=== PATIENT | female | born 1990 | race Caucasian/White ===

== ENCOUNTER 2016-12-24 20:49 | Outpatient (CLI) | payer MEDICAID, OTHER ==
[~2016-12-24] VITALS: Ht 167.6 cm; Wt 70.0 kg
[2016-12-24] MEDS ORDERED: MEPERIDINE/PF 100 MG/ML ONE (22:58)
[2016-12-24] MEDS ORDERED: PROMETHAZINE 25 MG/ML, 1ML ONE (22:58)
[2016-12-24] MEDS ORDERED: PROMETHAZINE 25 MG/ML, 1ML IM ONE (23:00)
[2016-12-24] MEDS ORDERED: MEPERIDINE/PF 50 MG/ML IM PRN (23:00)
== END 2016-12-24 23:12 | disposition home or self-care (01) ==
LOC: LDOP 20:49
PROVIDERS: ATTEND Obstetrics & Gynecology
DX: O26.893 Other specified pregnancy related conditions, third trimester (principal); O99.343 Other mental disorders complicating pregnancy, third trimester; O99.333 Smoking (tobacco) complicating pregnancy, third trimester; O62.9 Abnormality of forces of labor, unspecified; F32.9 Major depressive disorder, single episode, unspecified; F17.200 Nicotine dependence, unspecified, uncomplicated; R10.9 Unspecified abdominal pain; Z3A.38 38 weeks gestation of pregnancy
CPT/HCPCS: 59025; 81001; 87086; 99211; J2175; J2550; G0463

== ENCOUNTER 2016-12-25 13:59 | Inpatient (IN) | payer MEDICAID ==
[~2016-12-25] VITALS: Ht 167.6 cm; Wt 69.5 kg
[2016-12-25] MEDS ORDERED: FENTANYL PF 100 MCG/2ML IVPush PRN (14:00)
[2016-12-25] MEDS ORDERED: LACTATED RINGERS 1,000 ML IV SCH (14:00)
[2016-12-25] MEDS ORDERED: FENTANYL PF 100 MCG/2ML IV PRN (14:00)
[2016-12-25] MEDS ORDERED: ONDANSETRON 2MG/ML, 2ML IVPush PRN (14:00)
[2016-12-25] MEDS ORDERED: OXYTOCIN 30U/ 0.9% NaCL 500ML 500 ML IV ONE (14:00)
[2016-12-25] MEDS ORDERED: NEWBORN KIT ONE (14:14)
[2016-12-25] MEDS ORDERED: MISOPROSTOL 200 MCG TABLET ONE (14:14)
[2016-12-25] MEDS ORDERED: LIDOCAINE 1%, 20ML ONE (14:14)
[2016-12-25] MEDS ORDERED: FENTANYL PF 100 MCG/2ML ONE ×2 (14:14→15:21)
[2016-12-25] MEDS ORDERED: OXYTOCIN 30U/ 0.9% NaCL 500ML 500 ML ONE (14:15)
[2016-12-25 14:30] LABS: HEMATOCRIT 34.3 % (34.6-47.8); HEMOGLOBIN 11.3 g/dL (11.7-16.4); WHITE BLOOD COUNT 20.2 x10^3/uL (3.4-10)
[2016-12-25] MEDS ORDERED: FENTANYL/BUPIV./NS/PF 250 ML EPIDCONT ONE (15:21)
[2016-12-25] MEDS ORDERED: BUPIVACAINE 0.25% ONE (15:21)
[2016-12-25] MEDS ORDERED: LIDOCAINE/PF 1.5%-EPI 1:200K, 30ML ONE (15:27)
[2016-12-25] MEDS ORDERED: OXYTOCIN 30U/ 0.9% NaCL 500ML 500 ML IV SCH (20:21)
[2016-12-25] MEDS: OXYTOCIN 30U/ 0.9% NaCL 500ML 500 ML IV SCH (20:21)
[2016-12-25] MEDS ORDERED: CALCIUM CARBONATE 500 MG TAB.CHEW PO PRN (20:30)
[2016-12-25] MEDS ORDERED: ONDANSETRON 2MG/ML, 2ML IV PRN (20:30)
[2016-12-25] MEDS ORDERED: BISACODYL 10 MG SUPP PR PRN (20:30)
[2016-12-25] MEDS ORDERED: ACETAMINOPHEN 325 MG TABLET PO PRN ×2 (20:30)
[2016-12-25] MEDS ORDERED: MISOPROSTOL 200 MCG TABLET PR PRN (20:30)
[2016-12-25] MEDS ORDERED: HYDROcodone/APAP 5/325 TABLET PO PRN ×2 (20:30)
[2016-12-25 21:30] VITALS: BP 113/75
[2016-12-25] MEDS: IBUPROFEN 600 MG TABLET PO PRN (22:09)
[2016-12-25] MEDS: DULOXETINE 30 MG CAPSULE.DR PO SCH (23:00)
[2016-12-26 00:30] VITALS: BP 117/73
[2016-12-26 03:22] LABS: HEMATOCRIT 28.5 % (34.6-47.8); HEMOGLOBIN 9.5 g/dL (11.7-16.4); WHITE BLOOD COUNT 19.8 x10^3/uL (3.4-10)
[2016-12-26 05:00] VITALS: BP 104/67
[2016-12-26] MEDS: OXYTOCIN 30U/ 0.9% NaCL 500ML 500 ML IV SCH ×2 (06:21→16:21)
[2016-12-26 08:00] VITALS: BP 107/69
[2016-12-26] MEDS: PRENATAL VIT/IRON/FA 1 EACH TABLET PO SCH (08:58)
[2016-12-26] MEDS: DOCUSATE 100 MG CAPSULE PO PRN (08:58)
[2016-12-26] MEDS: IBUPROFEN 600 MG TABLET PO PRN ×2 (08:58→19:22)
[2016-12-26 12:00] VITALS: BP 123/72
[2016-12-26 16:00] VITALS: BP 112/72
[2016-12-26 20:00] VITALS: BP 110/78
[2016-12-26] MEDS: DULOXETINE 30 MG CAPSULE.DR PO SCH (21:00)
[2016-12-27] MEDS: IBUPROFEN 600 MG TABLET PO PRN (06:33)
[2016-12-27 07:20] VITALS: BP 110/72
[2016-12-27] MEDS: PRENATAL VIT/IRON/FA 1 EACH TABLET PO SCH (09:53)
[2016-12-27] MEDS: DOCUSATE 100 MG CAPSULE PO PRN (09:53)
== END 2016-12-27 14:47 | disposition home or self-care (01) | DRG 775 ==
LOC: LDIP 13:59 → 2NW 20:45
PROVIDERS: ADMIT Obstetrics & Gynecology; ATTEND Obstetrics & Gynecology
PROC: 0KQM0ZZ Repair Perineum Muscle, Open Approach (ICD-10-PCS; principal; 2016-12-25)
PROC: 10E0XZZ Delivery of Products of Conception, External Approach (ICD-10-PCS; 2016-12-25)
PROC: 3E0S3CZ (ICD-10-PCS; 2016-12-25)
PROC: 00HU33Z Insertion of Infusion Device into Spinal Canal, Percutaneous Approach (ICD-10-PCS; 2016-12-25)
DX: O99.334 Smoking (tobacco) complicating childbirth (principal); O99.344 Other mental disorders complicating childbirth; F32.9 Major depressive disorder, single episode, unspecified; O70.1 Second degree perineal laceration during delivery; G43.909 Migraine, unspecified, not intractable, without status migrainosus; F17.210 Nicotine dependence, cigarettes, uncomplicated; Z3A.38 38 weeks gestation of pregnancy; Z37.0 Single live birth; Z80.3 Family history of malignant neoplasm of breast; Z83.2 Family history of diseases of the blood and blood-forming organs and certain disorders involving the immune mechanism
CPT/HCPCS: 36415; 82803; 85025; 86592; 86850; 86900; J3010; J3490; J7120